=== PATIENT | female | born 1990 | race Caucasian/White ===

== ENCOUNTER 2017-01-07 08:09 | Emergency (ER) ==
[2017-01-07 08:17] VITALS: BP 129/75; TEMP 96.7; BMI 28.3
--- NOTE | 2017-01-07 08:24 | ED.PDOC ---
General ED Provider: Dr. TRISTAN STONE Chief Complaint: Sore Throat Stated Complaint: sore throat Time Seen by Physician: 08:18 Mode of Arrival: Walk-In Information Source: Patient Exam Limitations: No limitations Primary Care Provider: VELVET CURTISBRYN [facility] Nursing and Triage Documentation Reviewed and Agree: Yes EENT Complaint Exam - Throat Complaint/Exam Symptoms Are: Still present Timimg: Constant Initial Severity: Moderate Current Severity: Mild Aggravating: Reports: Eating Alleviating: Reports: None Associated Signs and Symptoms: Reports: Nasal congestion. Denies: Fever, Dysphagia, Drooling, Foreign body sensation, Chills, Cough, Wheezing, Hoarseness , Sinus discomfort, Difficulty breathing, Lethargy, Irritability, Decreased activity, Vomiting, Diarrhea, Decreased hearing, Ear drainage Uvula Midline: Yes Lotus-tonsillar Fluctuence: No Scarlatinaform Rash Present: No Stridor Present: No Sinus Tenderness Present: No Tonsillar Hypertrophy Present: No Tonsillar Exudate Present: No Lotus-tonsillar Swelling Present: No Adenopathy Present: No Splenomegaly Present: No Differential Diagnoses: Pharyngitis Review of Systems - Review Of Systems Constitutional: Reports: No symptoms Eyes: Reports: No symptoms Ears, Nose, Mouth, Throat: Reports: Throat pain Respiratory: Reports: No symptoms Cardiac: Reports: No symptoms GI: Reports: No symptoms : Reports: No symptoms Musculoskeletal: Reports: No symptoms Skin: Reports: No symptoms Neurological: Reports: No symptoms Endocrine: Reports: No symptoms Hematologic/Lymphatic: Reports: No symptoms All Other Systems: Reviewed and Negative Past Medical History - Past Medical History Previously Healthy: Yes Endocrine: Reports: None Cardiovascular: Reports: None Respiratory: Reports: None Hematological: Reports: None Gastrointestinal: Reports: None Genitourinary: Reports: None Neuro/Psych: Reports: None Musculoskeletal: Reports: None Cancer: Reports: None Last Menstrual Period: 2weeks ago - Surgical History General Surgical History: Reports: None - Family History Family History: Reports: None - Social History Smoking Status: Former smoker Hx Substance Use: No Alcohol Screening: None - Immunizations Tetanus Shot up to Date: No Physical Exam - Physical Exam Appearance: Well-appearing, No pain distress, Well-nourished Eyes: TERRIE, EOMI, Conjunctiva clear ENT: Erythema, Exudate Respiratory: Airway patent, Breath sounds clear, Breath sounds equal, Respirations nonlabored Cardiovascular: RRR, Pulses normal, No rub, No murmur GI/: Soft, Nontender, No masses, Bowel sounds normal, No Organomegaly Musculoskeletal: Normal strength, ROM intact, No edema, No calf tenderness Skin: Warm, Dry, Normal color Neurological: Sensation intact, Motor intact, Reflexes intact, Cranial nerves intact, Alert, Oriented Psychiatric: Affect appropriate, Mood appropriate Critical Care Note - Critical Care Note Total Time (mins): 0 Course - Course Vital Signs: Temp Pulse Resp BP Pulse Ox 01/07/17 08:10 96.7 F L 66 16 129/75 97 Departure - Departure Time of Disposition: 08:23 Disposition: HOME SELF-CARE Discharge Problem: Sore throat symptom Instructions: Pharyngitis (ED) Condition: Good Pt referred to PMD for follow-up: Yes Allergies/Adverse Reactions: Allergies codeine Adverse Reaction (Verified 01/07/17 08:20) diphenhydramine [From Benadryl] Adverse Reaction (Verified 01/07/17 08:20) pcn Allergy (Uncoded 10/22/13 15:40) hives pt toget medical alert necklace Home Medications: Ambulatory Orders 1 [No Reported Medications] 01/07/17 Disposition Discussed With: Patient
== END 2017-01-07 08:28 | disposition home or self-care (01) ==
LOC: ED 08:09
DX: J02.9 Acute pharyngitis, unspecified (principal)
CPT/HCPCS: 99282

== ENCOUNTER 2018-05-22 14:24 | Emergency (ER) ==
[2018-05-22 14:29] VITALS: BP 141/69; TEMP 96.5; BMI 32.7
[2018-05-22 14:55] LABS: URINE PREGNANCY TEST NEGATIVE (NEGATIVE)
--- NOTE | 2018-05-22 15:52 | DI ---
EXAM: Two views of the chest. History: Palpitations Findings: Heart size is normal. No focal consolidation. No appreciable pleural fluid and no pneumo thorax. No acute osseous abnormalities. Impression: No acute cardiopulmonary process
--- NOTE | 2018-05-22 16:13 | ED.PDOC ---
General ED Provider: Dr. TRISTAN STONE Chief Complaint: Abdominal Pain Stated Complaint: epigastric pain for years with bouts of palpitation no syncope reported no chest pain previously has had work up and holter for thisissue according to the pt it was all negative. denied any new pain or discomfort Time Seen by Physician: 14:30 (see with her nurse at all timea nd at discharge with oscar raymond as well ) Mode of Arrival: Walk-In Information Source: Patient Nursing and Triage Documentation Reviewed and Agree: Yes Does patient meet sepsis criteria?: No System Inflammatory Response Syndrome: Not Applicable Sepsis Protocol: For patient's 13 years and over: Temp is 96.8 and below OR 101 and greater Pulse >90 BPM Resp >20/minute Acutely Altered Mental Status Are patient's symptoms suggestive of a new infection, such as: -Pneumonia -Skin, Soft Tissue -Endocarditis -UTI -Bone, Joint Infection -Implantable Device -Acute Abdominal Infection -Wound Infection -Meningitis -Blood Stream Catheter Infection -Unknown GI Complaint Exam - Abdominal Pain Complaint/Exam Onset: Gradual Duration: chronic issue Symptoms Are: Resolved Timing: Intermittent Initial Severity: Mild Current Severity: None Location of Pain: Epigastric Radiates To: Reports: Chest Character: Reports: Dull Aggravating: Reports: None Alleviating: Reports: None Associated Signs and Symptoms: Denies: Diaphoresis, Fever, Cough, Chest pain, Dizziness, Back pain, Constipation, Blood in stool, Dysuria, Urinary frequency, Decreased urine output, Decreased appetite, Vaginal bleeding, Vaginal discharge , Nausea, Vomiting, Diarrhea, Sore throat, Decreased activity Related History: Reports: Similar episode AAA Risk Factors: Reports: None Cardiac Risk Factors: Reports: None Ectopic Risk Factors: Reports: None Ovarian Torsion Risk Factors: Reports: None Surgical Obstruction Risk Factors: Reports: None Related Surgical History: Reports: None Patient Rh Status: Unknown Abdominal Findings: Present: None Quality Indicators for AMI: EKG in 10min. Quality Indicators for Cardiac Chest Pain: EKG in 10min. Quality Indicator For Non-Traumatic Chest Pain/Syncope: EKG Performed Review of Systems - Review Of Systems Constitutional: Reports: No symptoms Eyes: Reports: No symptoms Ears, Nose, Mouth, Throat: Reports: No symptoms Respiratory: Reports: No symptoms Cardiac: Reports: Palpitations GI: Reports: Abdominal pain (upper only) : Reports: No symptoms Musculoskeletal: Reports: No symptoms Skin: Reports: No symptoms Neurological: Reports: No symptoms Endocrine: Reports: No symptoms Hematologic/Lymphatic: Reports: No symptoms All Other Systems: Reviewed and Negative Past Medical History - Past Medical History Previously Healthy: Yes Endocrine: Reports: None Cardiovascular: Reports: None Respiratory: Reports: None Hematological: Reports: None Gastrointestinal: Reports: None Genitourinary: Reports: None Neuro/Psych: Reports: None Musculoskeletal: Reports: None Cancer: Reports: None Last Menstrual Period: just strted yesterday - Surgical History General Surgical History: Reports: None - Family History Family History: Reports: None - Social History Smoking Status: Former smoker Hx Substance Use: No Alcohol Screening: None Physical Exam - Physical Exam Appearance: Well-appearing, No pain distress, Well-nourished Eyes: TERRIE, EOMI, Conjunctiva clear ENT: Ears normal, Nose normal, Oropharynx normal Respiratory: Airway patent, Breath sounds clear, Breath sounds equal, Respirations nonlabored Cardiovascular: RRR, Pulses normal, No rub, No murmur GI/: Soft, Nontender, No masses, Bowel sounds normal, No Organomegaly Musculoskeletal: Normal strength, ROM intact, No edema, No calf tenderness Skin: Warm, Dry, Normal color Neurological: Sensation intact, Motor intact, Reflexes intact, Cranial nerves intact, Alert, Oriented Psychiatric: Affect appropriate, Mood appropriate Interpretation - Radiology Interpretation Radiology Interpretation By: Radiologist Radiology Results: Negative Exam Interpreted: CXR - News Clerk Rate: Normal Rhythm: Sinus Ectopy: None - EKG Interpretation Rate: Normal Rhythm: Sinus Ectopy: None [place]: NL ST Segment: Normal Re-Evaluation - Re-Evaluation Time of Re-Evaluation: 15:00 Status: Improved Vital Signs Stable: Yes Pain Level: 0 Appearance: NAD Lungs: Clear Skin: Warm and Dry Neuro: Alert and Oriented X3 CV: RRR - Re-Evaluation Time of Re-Evaluation: 16:14 Status: Improved Vital Signs Stable: Yes Pain Level: 0 Appearance: NAD Skin: Warm and Dry Neuro: Alert and Oriented X3 CV: RRR Critical Care Note - Critical Care Note Total Time (mins): 0 Course - Course Hematology/Chemistry: 05/22/18 15:00 05/22/18 15:00 Orders, Labs, Meds: Lab Review 05/22/18 05/22/18 05/22/18 14:35 15:00 15:00 WBC 5.34 RBC 4.11 L Hgb 12.5 Hct 37.4 MCV 91.0 MCH 30.4 MCHC 33.4 RDW Coeff of José 12.6 Plt Count 224 Immature Gran % (Auto) 0.2 Neut % (Auto) 55.4 Lymph % (Auto) 33.9 [place] % (Auto) 7.9 Eos % (Auto) 1.9 Baso % (Auto) 0.7 Immature Gran # (Auto) 0.0 Neut # (Auto) 3.0 Lymph # (Auto) 1.8 [place] # (Auto) 0.4 Eos # (Auto) 0.1 Baso # (Auto) 0.0 Sodium 136.7 Potassium 3.73 Chloride 103.5 Carbon Dioxide 27.5 Anion Gap 9.43 BUN 12.0 Creatinine 0.76 Estimated GFR (MDRD) 89.00 BUN/Creatinine Ratio 15.78 Glucose 96.8 Calcium 9.35 Total Bilirubin 0.45 AST 22.2 ALT 14.7 Alkaline Phosphatase 56.5 Total Creatine Kinase 78.7 Troponin I < 0.012 Total Protein 7.52 Albumin 4.44 Globulin 3.08 Albumin/Globulin Ratio 1.44 TSH 5.770 H Free T4 Urine Test Negative 05/22/18 15:00 WBC RBC Hgb Hct MCV MCH MCHC RDW Coeff of José Plt Count Immature Gran % (Auto) Neut % (Auto) Lymph % (Auto) [place] % (Auto) Eos % (Auto) Baso % (Auto) Immature Gran # (Auto) Neut # (Auto) Lymph # (Auto) [place] # (Auto) Eos # (Auto) Baso # (Auto) Sodium Potassium Chloride Carbon Dioxide Anion Gap BUN Creatinine Estimated GFR (MDRD) BUN/Creatinine Ratio Glucose Calcium Total Bilirubin AST ALT Alkaline Phosphatase Total Creatine Kinase Troponin I Total Protein Albumin Globulin Albumin/Globulin Ratio TSH Free T4 0.78 Urine Test Orders Category Date Time Status EKG-(ED ONLY) Stat CARDIO 05/22/18 14:46 Completed CBC W/ AUTO DIFF Stat LAB 05/22/18 15:00 Completed COMPREHENSIVE METABOLIC PANEL Stat LAB 05/22/18 15:00 Completed CREATINE KINASE Stat LAB 05/22/18 15:00 Completed FREE T4 (FREE THYROXINE) Stat LAB 05/22/18 15:00 Completed MOLECULAR GROUP A STREP Stat LAB 05/22/18 14:50 Completed THYROID STIMULATING HORMONE Stat LAB 05/22/18 15:00 Completed TROPONIN I Stat LAB 05/22/18 15:00 Completed URINE Stat LAB 05/22/18 14:35 Completed CHEST, 2 VIEWS PA & LAT Stat RADS 05/22/18 14:46 Completed Vital Signs: Temp Pulse Resp BP Pulse Ox 05/22/18 14:25 96.5 F L 82 16 141/69 H 97 Departure - Departure Time of Disposition: 16:14 Disposition: HOME SELF-CARE Discharge Problem: Abdominal pain, Palpitations Condition: Good Pt referred to PMD for follow-up: Yes IPMP verified?: No Additional Instructions: Please call your Family Physician as soon as possible to schedule a follow-up appointment.your thyroid tests are abnormal please see [facility] for follow up as soon as you can. thyroid dysfuctions can lead to serious medical condition . thyroid gland ia master switch in the body make sure you do not overlook this issue Allergies/Adverse Reactions: Allergies codeine Adverse Reaction (Verified 05/22/18 14:28) diphenhydramine [From Benadryl] Adverse Reaction (Verified 05/22/18 14:28) pcn Allergy (Uncoded 10/22/13 15:40) hives pt toget medical alert necklace Home Medications: Ambulatory Orders 1 [No Reported Medications] 01/07/17
== END 2018-05-22 16:20 | disposition home or self-care (01) ==
LOC: ED 14:24
DX: R10.13 Epigastric pain (principal); R00.2 Palpitations; R94.6 Abnormal results of thyroid function studies
CPT/HCPCS: 36415; 80053; 81025; 82550; 84439; 84443; 84484; 85025; 87651; 93005; 93010; 99283